=== PATIENT | male | born 1945 | race Hispanic/Latino ===

== ENCOUNTER 2018-01-05 18:24 | Emergency (ER) | payer BC, OTHER ==
[~2018-01-05] VITALS: Ht 172.7 cm; Wt 78.7 kg
[2018-01-05 19:06] LABS: HEMATOCRIT 37.4 % (38.0-50.0); HEMOGLOBIN 12.4 G/DL (12.5-16.6); MCH 31.7 PG (29.0-34.0); MCHC 33.2 G/DL (30.0-36.0); MCV 95.7 FL (86-99); PLATELET COUNT 216 K/uL (156-360); RBC DIS.WIDTH-CV 11.5 % (11.8-14.6); RBC DIS.WIDTH-SD 39.8 % (39-53); RED BLOOD COUNT 3.91 M/uL (4.00-5.50); WHITE BLOOD COUNT 10.4 K/uL (4.1-10.2)
[2018-01-05 19:16] LABS: ALBUMIN 4.2 g/dL (3.2-4.8)
[2018-01-05 19:17] LABS: CHLORIDE 101 mEq/L (99-109); POTASSIUM 4.7 mEq/L (3.7-5.4); SODIUM 134 mEq/L (136-147)
[2018-01-05 19:19] LABS: GLUCOSE 137 mg/dL (70-99); TOTAL PROTEIN 8.1 g/dL (6.4-8.3)
[2018-01-05 19:21] LABS: TOTAL BILIRUBIN 0.3 mg/dL (0.0-1.0)
[2018-01-05 19:22] LABS: ALKALINE PHOSPHATASE 75 IU/L (3-129)
[2018-01-05 19:23] LABS: CREATININE 1.2 mg/dL (0.6-1.3)
[2018-01-05 19:24] LABS: AST (GOT) 14 IU/L (2-34); GFR ESTIMATE (CALCULATED) > 59 mL/min/ (58.99-99999); UREA NITROGEN (BUN) 29 mg/dL (9-23)
[2018-01-05 19:25] LABS: ALT (GPT) 13 IU/L (3-49)
[2018-01-05 19:39] LABS: APPEARANCE CLEAR ((CLEAR)); BILIRUBIN NEGATIVE; BLOOD NEGATIVE; COLOR YELLOW ((YELLOW)); GLUCOSE (STRIP) NEGATIVE; KETONES NEGATIVE; LEUKOCYTES SMALL; NITRITE NEGATIVE; PROTEIN (STRIP) NEGATIVE; UROBILINOGEN 0.2 MG/DL (0.2-1.0)
[2018-01-05 19:48] LABS: BACTERIA NONE SEEN /HPF; EPITHELIAL CELLS RARE /HPF; MUCUS TRACE /LPF; UCUL ADDED? YES
[2018-01-05] MEDS ORDERED: BACTRIM,SEPT1 TABLET PO (21:25)
[2018-01-05 21:47] VITALS: BP 156/86
== END 2018-01-05 21:47 | disposition home or self-care (01) ==
LOC: EME 18:24
DX: N30.00 Acute cystitis without hematuria (principal); E11.9 Type 2 diabetes mellitus without complications; Z86.73 Personal history of transient ischemic attack (TIA), and cerebral infarction without residual deficits
CPT/HCPCS: 80053; 81003; 85027; 87086; 99281; 99284